=== PATIENT | female | born 1995 | race Caucasian/White ===

== ENCOUNTER 2020-11-12 21:51 | Emergency (ER) | payer OTHER ==
--- NOTE | 2020-11-12 23:14 | EDM.PDOC ---
ED HPI GENERAL MEDICAL PROBLEM - General Chief Complaint: [employer]ER Problem Stated Complaint: 5 WEEKS , BLEEDING, CRAMPING Time Seen by Provider: 11/12/20 23:14 Source of Information: Reports: Patient History Limitations: Reports: No Limitations - History of Present Illness INITIAL COMMENTS - FREE TEXT/NARRATIVE: Patient is a 24-year-old female presents today for vaginal bleeding and abdominal cramps. Patient thinks she is about 5 weeks . She spoke to her [facility] doctor who told to come in to rule out possible possible ectopic . Patient says she is only used 1 pad the past few hours. She is not feel weak tired. Lower Abdomen Pain Score (Numeric/FACES): 5 - Related Data Allergies Allergy/AdvReac Type Severity Reaction Status Date / Time No Known Allergies Allergy Verified 11/12/20 22:32 Past Medical History - Infectious Disease History Infectious Disease History: Reports: None Social & Family History - Tobacco Use Tobacco Use Status *Q: Never Tobacco User - Caffeine Use Caffeine Use: Reports: Soda - Recreational Drug Use Recreational Drug Use: No ED ROS GENERAL - Review of Systems Review Of Systems: See Below Constitutional: Reports: No Symptoms HEENT: Reports: No Symptoms Respiratory: Reports: No Symptoms Cardiovascular: Reports: No Symptoms Endocrine: Reports: No Symptoms GI/Abdominal: Reports: No Symptoms : Reports: Other (vaginal bleeding) Musculoskeletal: Reports: No Symptoms Skin: Reports: No Symptoms Neurological: Reports: No Symptoms Psychiatric: Reports: No Symptoms Hematologic/Lymphatic: Reports: No Symptoms Immunologic: Reports: No Symptoms ED EXAM - Physical Exam Exam: See Below Exam Limited By: No Limitations General Appearance: Alert, WD/WN, No Apparent Distress Respiratory/Chest: No Respiratory Distress, Lungs Clear Cardiovascular: Normal Peripheral Pulses, Regular Rate, Rhythm GI/Abdominal Exam: Normal Bowel Sounds, Soft. No: Non-Tender Extremities: Normal Inspection Neurological: Alert, Oriented Course - Vital Signs Last Recorded V/S: Last Vital Signs Temp 97.3 F 11/12/20 22:32 Pulse 98 11/12/20 22:32 Resp 16 11/12/20 22:32 BP 124/91 H 11/12/20 22:32 Pulse Ox 97 11/12/20 22:32 - Orders/Labs/Meds Labs: Laboratory Tests 11/12/20 11/12/20 Range/Units 23:40 23:40 WBC 10.81 (4.0-11.0) K/uL RBC 4.38 (4.30-5.90) M/uL Hgb 13.8 (12.0-16.0) g/dL Hct 39.8 (36.0-46.0) % MCV 90.9 (80.0-98.0) fL MCH 31.5 (27.0-32.0) pg MCHC 34.7 (31.0-37.0) g/dL RDW Std Deviation 42.9 (28.0-62.0) fl RDW Coeff of Fredrick 13 (11.0-15.0) % Plt Count 307 (150-400) K/uL MPV 9.60 (7.40-12.00) fL Neut % (Auto) 67.4 (48.0-80.0) % Lymph % (Auto) 24.3 (16.0-40.0) % [place] % (Auto) 6.3 (0.0-15.0) % Eos % (Auto) 1.9 (0.0-7.0) % Baso % (Auto) 0.1 (0.0-1.5) % Neut # (Auto) 7.3 H (1.4-5.7) K/uL Lymph # (Auto) 2.6 H (0.6-2.4) K/uL [place] # (Auto) 0.7 (0.0-0.8) K/uL Eos # (Auto) 0.2 (0.0-0.7) K/uL Baso # (Auto) 0.0 (0.0-0.1) K/uL Nucleated RBC % 0.0 /100WBC Nucleated RBCs # 0 K/uL Sodium 137 (136-145) mmol/L Potassium 3.3 L (3.5-5.1) mmol/L Chloride 102 (98-107) mmol/L Carbon Dioxide 24.3 (21.0-32.0) mmol/L BUN 10 (7.0-18.0) mg/dL Creatinine 0.7 (0.6-1.0) mg/dL Est Cr Clr Drug Dosing 111.51 mL/min Estimated GFR (MDRD) > 60.0 ml/min Glucose 81 (74-106) mg/dL Calcium 8.7 (8.5-10.1) mg/dL HCG, Quant 7460.0 mIU/mL - Re-Assessments/Exams Free Text/Narrative Re-Assessment/Exam: 11/13/20 01:04 Patient ultrasound shows IUP with cyst on the right. Like related to patient's pain. Patient will be discharged to follow-up with [facility]. Departure - Departure Time of Disposition: 01:05 Disposition: Home, Self-Care 01 Condition: Good Clinical Impression: Ovarian cyst - Discharge Information *PRESCRIPTION DRUG MONITORING PROGRAM REVIEWED*: Not Applicable *COPY OF PRESCRIPTION DRUG MONITORING REPORT IN PATIENT CONCEPCION: Not Applicable Instructions: Ovarian Cyst, [id number] Referrals: PCP,None [Primary Care Provider] - Forms: ED Department Discharge Additional Instructions: The following information is given to patients seen in the emergency department who are being discharged to home. This information is to outline your options for follow-up care. We provide all patients seen in our emergency department wi th a follow-up referral. The need for follow-up, as well as the timing and circumstances, are variable depending upon the specifics of your emergency department visit. If you don't have a primary care physician on staff, we will provide you with a referral. We always advise you to contact your personal physician following an emergency department visit to inform them of the circumstance of the visit and for follow-up with them and/or the need for any referrals to a consulting specialist. The emergency department will also refer you to a specialist when appropriate. This referral assures that you have the opportunity for follow-up care with a specialist. All of these measure are taken in an effort to provide you with optimal care, which includes your follow-up. Under all circumstances we always encourage you to contact your private physician who remains a resource for coordinating your care. When calling for follow-up care, please make the office aware that this follow-up is from your recent emergency room visit. If for any reason you are refused follow-up, please contact the [facility] Emergency Department at and asked to speak to the emergency department charge nurse. Please follow up with your primary care physician. If you do not have a primary care physician, see below: [facility] [address] [place] [address] [facility] [address] [place] [id number] You were seen today for vaginal bleeding and abdominal pain. We did ultrasound shows that the is early but is in the right place. It is too early to any heart tones or movement so please continue to monitor the . If you have any other concerning signs or symptoms please return to the ED otherwise follow-up with your [facility] [employer] [facility] doctor. Sepsis Event Note (ED) - Evaluation Sepsis Screening Result: No Definite Risk - Focused Exam Vital Signs: Vital Signs Temp Pulse Resp BP Pulse Ox 11/12/20 22:32 97.3 F 98 16 124/91 H 97 - Assessment/Plan Plan: Patient is a 24-year-old female presents today for vaginal bleeding while being . Will obtain a ultrasound to rule out ectopic and draw labs to trend beta.
[2020-11-13 00:21] LABS: BLOOD UREA NITROGEN,BUN 10 mg/dL (7.0-18.0); CARBON DIOXIDE,CO2 24.3 mmol/L (21.0-32.0); CHLORIDE,CL 102 mmol/L (98-107); GLUCOSE RANDOM 81 mg/dL (74-106); POTASSIUM,K 3.3 mmol/L (3.5-5.1); SODIUM,NA 137 mmol/L (136-145)
--- NOTE | 2020-11-13 01:00 | US ---
INDICATION: Spotting TECHNIQUE: Ultrasound OB pelvis transvaginal. Real-time hernandez-scale imaging of the pelvis was performed. COMPARISON: None available FINDINGS: There is a gestational sac within the endometrium with a mean sac diameter corresponding to 5 weeks and 5 days. A yolk sac is seen, measuring 3 mm. There is a questionable tiny pole, measuring 1 mm, corresponding to less than 5 weeks. No cardiac activity is detected. There is apparent tiny fluid in the endocervical canal. The right ovary measures 4.3 x 2.1 x 1.9 cm, containing a 2.4 x 1.8 x 1.7 cm solid and cystic structure suggestive of a hemorrhagic corpus luteum cyst. The left ovary measures 2.4 x 2.1 x 2.6 cm. There is small to moderate free fluid which appears mildly complex. IMPRESSION: An intrauterine gestational sac at 5 weeks and 5 days by mean sac diameter, containing a yolk sac. A questionable tiny pole noted, without cardiac activity, which could be related to the early gestational age. Correlate with a short-term follow-up study to evaluate viability. A 2.4 cm hemorrhagic right ovarian corpus luteum cyst. Moderate mildly complex free fluid Dictated by Augustus Grant MD @ 11/13/2020 12:59:[address] Augustus Grant @ Nov 13 2020 12:59AM
== END 2020-11-13 01:17 | disposition home or self-care (01) ==
LOC: MW.ED 21:51
DX: O34.81 Maternal care for other abnormalities of pelvic organs, first trimester (principal); N83.201 Unspecified ovarian cyst, right side; Z3A.01 Less than 8 weeks gestation of pregnancy
CPT/HCPCS: 36415; 76801; 76801-26; 80048; 84702; 85025; 99284-25